=== PATIENT | female | born 1990 ===

== ENCOUNTER 2023-09-05 12:54 | Emergency (ER) | payer OTHER ==
[~2023-09-05] VITALS: Ht 170.2 cm; Wt 63.5 kg
[2023-09-05 13:04] VITALS: BP 136/97
[2023-09-05] MEDS ORDERED: TRAZ50 PO (15:04)
== END 2023-09-05 15:14 | disposition home or self-care (01) ==
LOC: ER 12:54
DX: G47.00 Insomnia, unspecified (principal); Z76.0 Encounter for issue of repeat prescription; F32.A Depression, unspecified
CPT/HCPCS: 99282

== ENCOUNTER 2023-10-06 09:45 | Emergency (ER) | payer OTHER ==
[~2023-10-06] VITALS: Ht 170.2 cm; Wt 65.8 kg
[~2023-10-06 09:45] MED LIST: TRAZ50 PO
[2023-10-06 10:05] VITALS: BP 108/64
== END 2023-10-06 10:10 | disposition home or self-care (01) ==
LOC: ER 09:45
DX: L98.9 Disorder of the skin and subcutaneous tissue, unspecified (principal); F32.A Depression, unspecified; Z79.899 Other long term (current) drug therapy
CPT/HCPCS: 99283